=== PATIENT | female | born 1950 | race Caucasian/White ===

== ENCOUNTER 2020-04-07 13:56 | Inpatient (IN) | payer MEDICARE, OTHER ==
[2020-04-07] MEDS ORDERED: Ondansetron PF 4 MG/2 ML Vial ONE (14:48)
[2020-04-07] MEDS ORDERED: Morphine 4 MG/ML VIAL ONE (14:48)
[2020-04-07 14:57] LABS: #Lymphocytes 1.9 thou/uL (1.20-3.40); #Monocytes 0.9 thou/uL (0.11-0.59); #Neutrophils 10.9 thou/uL (1.40-6.50); %Basophils 0.3 % (0.0-1.0); %Eosinophils 0.1 % (0.0-10.0); %Lymphocytes 13.9 % (21.0-51.0); %Monocytes 6.6 % (0.0-10.0); Hemoglobin 14.5 g/dL (12.0-16.0); Mean Corpuscular HGB CONC 32.4 g/dL (32.0-36.0); Mean Corpuscular Hemoglobin 30.6 pg (27.0-31.0); Mean Corpuscular Volume 94.4 fL (78.0-98.0); Mean Platelet Volume 9.1 fL (7.4-10.4); Platelet Count 313 thou/uL (130-400); RBC Distribution Width 12.4 % (11.5-14.5); Red Blood Cell (RBC) Count 4.74 mill/uL (4.20-5.40); White Blood Cell (WBC) Count 13.7 thou/uL (4.8-10.8)
[2020-04-07 15:20] LABS: ALT (SGPT) 22 U/L (8-55); AST (SGOT) 15 U/L (5-34); Alkaline Phosphatase 120 U/L (40-110); Anion Gap 17 mmol/L (10-20); BUN (Urea Nitrogen) 24 mg/dL (9.8-20.1); Bilirubin, Total 0.6 mg/dL (0.2-1.2); Calc. Creatinine Clearance 0 mL/min (70-130); Calcium 9.6 mg/dL (7.8-10.44); Carbon Dioxide 27 mmol/L (23-31); Chloride 98 mmol/L (98-107); Estimated GFR-MDRD 63; Globulin 3.5 g/dL (2.4-3.5); Glucose 127 mg/dL (80-115); Lipase 15 U/L (8-78); Potassium 4.6 mmol/L (3.5-5.1); Protein, Total 7.5 g/dL (6.0-8.3); Sodium 137 mmol/L (136-145)
[2020-04-07] MEDS ORDERED: metroNIDAZOLE 500 MG/100 ML BAG ONE (15:38)
[2020-04-07] MEDS ORDERED: Ondansetron ODT 4 MG TAB PO PRN (17:49)
[2020-04-07] MEDS ORDERED: Senokot S 8.6-50 MG TAB PO PRN (17:49)
[2020-04-07] MEDS ORDERED: Ondansetron PF 4 MG/2 ML Vial IVP PRN (17:49)
[2020-04-07] MEDS ORDERED: Acetaminophen 325 MG TAB PO PRN (17:49)
[2020-04-07] MEDS ORDERED: Bisacodyl 5 MG TAB PO PRN (17:49)
[2020-04-07] MEDS ORDERED: Bisacodyl 10 MG SUPP PR PRN (17:49)
[2020-04-07] MEDS ORDERED: Sodium Chloride 0.9% 1,000 ML IV SCH (18:00)
[2020-04-07] MEDS ORDERED: Piperacillin/Tazobactam 4.5 GM in Sodium Chloride 0.9% 100 ML IVPB SCH (18:00)
[2020-04-07] MEDS ORDERED: HumaLOG 300 UNITS/3 ML VIAL SC PRN ×2 (18:04)
[2020-04-07] MEDS ORDERED: Dextrose 50% Abboject 50 ML SYRINGE SLOW IVP PRN (18:04)
[2020-04-07] MEDS ORDERED: Dextrose 5% in Water 1,000 ML IV PRN (18:04)
[2020-04-07] MEDS ORDERED: GoLYTELY 4,000 ml Bottle PO SCH (18:15)
[2020-04-07 18:21] LABS: Lactic Acid 1.9 mmol/L (0.5-2.2)
[2020-04-07 18:31] VITALS: BMI 24.1
--- NOTE | 2020-04-07 19:19 | HP ---
PRIMARY CARE PHYSICIAN: Out of town. CHIEF COMPLAINT: Abdominal pain. HISTORY OF PRESENT ILLNESS: The patient is a poor historian. Therefore, the bulk of the H and P was taken from previous medical records, ER notes, and nursing documentation. The patient is a 70-year-old female with a past medical history significant for CAD; diabetes type 2, non-insulin dependent; hypertension; and recent stroke, who presented to the hospital from [facility] in [place], [place] via EMS. It appears that the patient had abdominal pain with some associated nausea and vomiting for the past couple of days. The patient reports that the pain was located generally throughout the abdomen. Denies any hematemesis or diarrhea. She does not know when her last bowel movement occurred. She denies any associated fever or chills. She denies any urinary symptoms such as dysuria, frequency, or urgency. She denies any vaginal discharge. Dr. Johns, who is her primary care provider at rehab, ordered a CT of the abdomen and pelvis with contrast today. The CT showed large volume stool and dilated rectum with mural thickening. The patient was subsequently transferred to this hospital for further treatment and evaluation. In the ER, the patient presented with stable vital signs, normal blood pressure, normal pulse, normal respirations, normal SpO2 sat, afebrile. Her WBCs were 13.7. Lactic acid 2.6. Her CMP and CBC were otherwise unremarkable. The patient was digitally disimpacted by an ER physician and started on Flagyl and Levaquin. She was given 1.5 L of normal saline along with morphine and Zofran IV push and admitted to the floor for further care. PAST MEDICAL HISTORY: 1. CVA (03/25/2020) unknown deficits. 2. CAD, on aspirin and Plavix. 3. Diabetes type 2. 4. Hyperlipidemia. 5. Hypertension. PAST SURGICAL HISTORY: Cholecystectomy. SOCIAL HISTORY: The patient currently resides at an inpatient [facility] in [place], [place]. She is a retired from [employer]. She reports that she ambulates with a roller walker. However, she appears generally deconditioned on exam. She denies any history of smoking, illicit drug use, or alcohol intake. FAMILY HISTORY: Contributory for CVA, the patient is a poor historian. ALLERGIES: 1. GUAIFENESIN. 2. BENADRYL. HOME MEDICATIONS: 1. Aspirin 81 mg p.o. daily. 2. Plavix 75 mg p.o. daily. 3. Atorvastatin 10 mg p.o. daily. 4. Lisinopril 20 mg p.o. daily. 5. Metoprolol succinate 50 mg p.o. daily. 6. Metformin 500 mg p.o. b.i.d. 7. Oxybutynin 5 mg p.o. b.i.d. 8. Pioglitazone 30 mg p.o. daily. REVIEW OF SYSTEMS: All review of systems are negative unless otherwise stated in HPI. PHYSICAL EXAMINATION: VITAL SIGNS: Temperature 99 Fahrenheit, blood pressure 113/54, pulse 56, respirations 20, SpO2 sat 100% on room air, pain 0/10. CONSTITUTIONAL: The patient is alert and oriented to person and place. She has slowed speech, appears in no acute distress. HEAD: Atraumatic and normocephalic. EYES: PERRL. Sclerae nonicteric. Extraocular muscles intact. ENT: Oropharynx is clear. Uvula midline. Tacky mucous membranes. No lesions. NECK: Full range of motion. No cervical spinous tenderness. No cervical adenopathy. Trachea midline. CARDIOVASCULAR: S1 and S2 appreciated. No murmurs, rubs, or gallops. RESPIRATORY/CHEST: Respirations even and unlabored. Clear to auscultation. No rhonchi, wheezes, or rales. ABDOMEN: Soft, nontender, nondistended. No guarding, rigidity, or rebound. Negative Rovsing sign. Negative Gonzalez sign. No abdominal bruit auscultated. BACK: No central spinous tenderness. No CVA tenderness. EXTREMITIES: Upper extremities; full range of motion. Strength 4/5 on the power scale. Sensation intact. Palpable radial pulses. Lower extremities; decreased range of motion. General weak 3/5 on the power scale. Sensation intact. No edema. Palpable radial pulses. NEUROLOGIC: The patient is A and O x2. Follows commands. Moves all extremities. No focal motor deficits. She does have slowed speech. No dysarthria. PSYCHIATRIC: Denies suicidal or homicidal ideation with a flat affect. A and O x2. LABS AND DIAGNOSTICS: CT of the abdomen showed a large volume stool and a dilated rectum with mural thickening consistent for stercoral colitis and fecal impaction. The dilated rectum is 8 cm in diameter at its largest area. Lactic acid was 2.6. WBCs 13.7, hemoglobin 14.5, hematocrit 44.8, platelet count 313. Sodium 137, potassium 4.6, chloride 98, carbon dioxide 27, anion gap 17, BUN 24, creatinine 0.89, glucose 127. Bilirubin 0.6, AST 15, ALT 22, alkaline phosphatase 120, lipase 15, albumin 4.0. IMPRESSION AND PLAN: 1. Fecal impaction. The patient will be admitted to the medical floor inpatient status. Expected length of stay less than [address] abdomen and pelvis is positive for large volume stool and dilated rectum with mural thickening, no perforation or concern for abscess. The patient presented with stable vital signs. Lactic acid 2.6. WBCs of 13.7. The patient was given 30 mL/kg of IV fluid resuscitation and started on Flagyl and Levaquin in the ER. We will start the patient on Zosyn. Continue IV fluid resuscitation. Blood cultures and urine cultures and coronavirus swab are pending. We will order GoLYTELY and enemas and start the patient on a clear liquid diet. We will consult GI. 2. Stercoral colitis, likely secondary to problem #1. 3. Dehydration. The patient presented with a BUN of 24 and a creatinine of 0.89. We will continue IV fluid resuscitation and clear liquid diet and recheck levels in the a.m. 4. Hematuria. The patient has a Akhtar with what appears to be red urine. UA and urine culture are pending. Hemoglobin and hematocrit are stable. We will hold Plavix for now and continue low-dose aspirin considering recent CVA. We will await UA results and check hemoglobin this evening. 5. Hypertension. The patient presented with a stable blood pressure and pulse. The patient takes metoprolol succinate 50 mg daily and lisinopril 20 mg daily. We will start her metoprolol at half the dose 25 mg twice a day and we will restart her lisinopril 20 mg and continue to monitor blood pressure. 6. Diabetes, type 2. The patient reports taking metformin and pioglitazone at home. We will hold oral antihyperglycemics for now. We will start the patient on moderate sliding scale with Accu-Cheks a.c. and at bedtime. 7. Coronary artery disease. The patient was on aspirin and Plavix. We will hold the patient's Plavix for now secondary to hematuria and we will continue aspirin given the patient's recent CVA. SCDs for deep venous thrombosis prophylaxis. No pharmacological deep venous thrombosis prophylaxis. Protonix for gastrointestinal prophylaxis. The patient is a full code. Discussed the case with Dr. Johnson. Job ID: [id number] MTDD
[2020-04-07] MEDS: Bisacodyl 10 MG SUPP PR SCH (19:53)
[2020-04-07] MEDS: Piperacillin/Tazobactam 4.5 GM in Sodium Chloride 0.9% 100 ML IVPB SCH (19:53)
[2020-04-07] MEDS: Lactated Ringer's 1,000 ML IV SCH (19:54)
[2020-04-07] MEDS: Metoprolol Tartrate 25 MG TAB PO SCH (20:47)
[2020-04-07 23:26] LABS: Hemoglobin 12.9 g/dL (12.0-16.0)
[2020-04-08] MEDS: Bisacodyl 10 MG SUPP PR SCH ×3 (02:15→18:02)
[2020-04-08] MEDS: Piperacillin/Tazobactam 4.5 GM in Sodium Chloride 0.9% 100 ML IVPB SCH ×3 (04:00→20:22)
[2020-04-08 05:44] LABS: #Lymphocytes 1.3 thou/uL (1.20-3.40); #Monocytes 1.1 thou/uL (0.11-0.59); #Neutrophils 14.2 thou/uL (1.40-6.50); %Basophils 0.1 % (0.0-1.0); %Eosinophils 0.2 % (0.0-10.0); %Lymphocytes 7.9 % (21.0-51.0); %Monocytes 6.4 % (0.0-10.0); %Neutrophils 85.5 % (42.0-75.0); Hemoglobin 12.4 g/dL (12.0-16.0); Mean Corpuscular HGB CONC 32.5 g/dL (32.0-36.0); Mean Corpuscular Hemoglobin 31.1 pg (27.0-31.0); Mean Corpuscular Volume 95.7 fL (78.0-98.0); Platelet Count 246 thou/uL (130-400); RBC Distribution Width 12.4 % (11.5-14.5); Red Blood Cell (RBC) Count 3.98 mill/uL (4.20-5.40); White Blood Cell (WBC) Count 16.7 thou/uL (4.8-10.8)
[2020-04-08 06:09] LABS: ALT (SGPT) 15 U/L (8-55); AST (SGOT) 12 U/L (5-34); Albumin 3.2 g/dL (3.4-4.8); Alkaline Phosphatase 97 U/L (40-110); Anion Gap 14 mmol/L (10-20); BUN (Urea Nitrogen) 17 mg/dL (9.8-20.1); Bilirubin, Total 0.6 mg/dL (0.2-1.2); Calc. Creatinine Clearance 79 mL/min (70-130); Calcium 8.5 mg/dL (7.8-10.44); Carbon Dioxide 23 mmol/L (23-31); Chloride 103 mmol/L (98-107); Estimated GFR-MDRD Greater than 90; Globulin 2.8 g/dL (2.4-3.5); Glucose 130 mg/dL (80-115); Potassium 4.2 mmol/L (3.5-5.1); Sodium 136 mmol/L (136-145)
[2020-04-08] MEDS: Lisinopril 20 MG TAB PO SCH (08:56)
[2020-04-08] MEDS: Aspirin Chewable 81 MG TAB PO SCH (08:56)
[2020-04-08] MEDS: Lactated Ringer's 1,000 ML IV SCH ×2 (08:56→23:00)
[2020-04-08] MEDS: Atorvastatin Calcium 10 MG TAB PO SCH (08:57)
[2020-04-08] MEDS: Pantoprazole 40 MG VIAL IVP SCH (09:11)
[2020-04-08] MEDS: Oxybutynin 5 MG TAB PO SCH (10:07)
[2020-04-08] MEDS: Metoprolol Tartrate 25 MG TAB PO SCH ×2 (10:07→20:22)
--- NOTE | 2020-04-08 10:12 | PDOC.HOSPP ---
- Subjective Encounter Date: 04/08/20 Subjective: Bowel movements reported. - Objective Vital Signs & Weight: Vital Signs (12 hours) Temp Pulse Resp BP BP Pulse Ox 04/08/20 08:56 147/64 H 04/08/20 08:33 98.5 F 65 20 147/64 H 97 04/08/20 08:00 97 04/08/20 04:18 97.8 F 72 16 154/68 H 100 04/07/20 23:51 98.1 F 60 16 137/52 L 97 Weight Weight 132 lb Result Diagrams: 04/08/20 05:30 04/08/20 05:30 Hospitalist ROS - Medication Medications: Active Medications Generic Name Dose Route Start Last Admin Trade Name Freq PRN Reason Stop Dose Admin Acetaminophen 650 mg 04/07/20 17:49 04/08/20 05:42 Tylenol PO 650 mg Q4H PRN Administration Headache/Fever/Mild Pain (1-3) Aspirin 81 mg 04/08/20 09:00 04/08/20 08:56 Aspirin Chewable PO 81 mg DAILY TRENT Administration Atorvastatin Calcium 10 mg 04/08/20 09:00 04/08/20 08:57 Lipitor PO 10 mg DAILY TRENT Administration Bisacodyl 10 mg 04/07/20 18:15 04/08/20 02:15 Dulcolax [place] Not Given Q8H TRENT Lactated Ringer's 1,000 mls @ 70 mls/hr 04/07/20 18:15 04/08/20 08:56 Lactated Ringer's IV 1,000 mls .[id number] TRENT Administration Piperacillin Sod/Tazobactam 100 mls @ 200 mls/hr 04/07/20 20:00 04/08/20 04: 00 Sod 4.5 gm/ Sodium Chloride IVPB 100 mls 0400,1200,2000 TRENT Administration Lisinopril 20 mg 04/08/20 09:00 04/08/20 08:56 Zestril PO 20 mg DAILY TRENT Administration Metoprolol Tartrate 25 mg 04/07/20 21:00 04/07/20 20:47 Lopressor PO Not Given BID TRENT Pantoprazole Sodium 40 mg 04/08/20 09:00 04/08/20 09:11 Protonix IVP 40 mg DAILY TRENT Administration - Exam General Appearance: awake alert Neck: supple, no JVD Respiratory: normal chest expansion, no tachypnea Gastrointestinal: soft Neurological: cranial nerve grossly intact, no new deficit Hosp A/P (1) Fecal impaction Code(s): K56.41 - FECAL IMPACTION Status: Acute (2) Colitis Code(s): K52.9 - NONINFECTIVE GASTROENTERITIS AND COLITIS, UNSPECIFIED Status : Acute (3) Dehydration Code(s): E86.0 - DEHYDRATION Status: Acute (4) Coronary artery disease Code(s): I25.10 - ATHSCL HEART DISEASE OF [place] CORONARY ARTERY W/O ANG PCTRS Status: Acute (5) Suspected UTI Code(s): R39.89 - OTHER SYMPTOMS AND SIGNS INVOLVING THE GENITOURINARY SYSTEM Status: Acute - Plan Continue IV hydration. Continue GoLYTELY as needed to achieve 2 or more bowel movements a day. PT and OT evaluation. Check UA.
[2020-04-08 10:38] LABS: Bilirubin Negative (Negative); Blood, Urine 2+ (Negative); Clarity Clear (Clear); Glucose, Urine (Dipstick) Normal (Negative); Ketone, Urine 60 mg/dL (Negative); Leukocyte 250 Leu/uL (Negative); Nitrite Negative (Negative); Protein, Urine (Dipstick) 10 mg/dL (Neg-Trace); RBC/HPF 21-50 HPF (0-3); Specific Gravity, Urine 1.033 (1.002-1.036); Squamous Epithelial None Seen HPF (0-3); Urobilinogen Normal mg/dL (Less than 2); pH, Urine 5.5 (5.0-9.0)
[2020-04-08 10:42] LABS: Bacteria/HPF 1+ HPF (None Seen)
[2020-04-08 12:40] LABS: SARS-CoV-2 MS2 Positive; SARS-CoV-2 N Gene Negative; SARS-CoV-2 S Gene Negative; SARS-CoV-2 by NAA Not Detected (NotDetected); SARS-CoV-2 orf1ab Negative
[2020-04-09] MEDS: Bisacodyl 10 MG SUPP PR SCH ×2 (03:15→08:54)
[2020-04-09] MEDS: Piperacillin/Tazobactam 4.5 GM in Sodium Chloride 0.9% 100 ML IVPB SCH ×2 (05:19→13:00)
[2020-04-09] MEDS: Aspirin Chewable 81 MG TAB PO SCH (08:51)
[2020-04-09] MEDS: Lisinopril 20 MG TAB PO SCH (08:52)
[2020-04-09] MEDS: Metoprolol Tartrate 25 MG TAB PO SCH (08:53)
[2020-04-09] MEDS: Oxybutynin 5 MG TAB PO SCH (08:53)
[2020-04-09] MEDS: Atorvastatin Calcium 10 MG TAB PO SCH (08:53)
[2020-04-09] MEDS: Pantoprazole 40 MG VIAL IVP SCH (08:54)
[2020-04-09 09:41] LABS: #Eosinphils 0.1 thou/uL (0.0-0.7); #Lymphocytes 2.1 thou/uL (1.20-3.40); #Monocytes 0.9 thou/uL (0.11-0.59); #Neutrophils 9.4 thou/uL (1.40-6.50); %Basophils 0.2 % (0.0-1.0); %Eosinophils 1.1 % (0.0-10.0); %Monocytes 7.1 % (0.0-10.0); %Neutrophils 74.6 % (42.0-75.0); Hemoglobin 11.3 g/dL (12.0-16.0); Mean Corpuscular HGB CONC 33.3 g/dL (32.0-36.0); Mean Corpuscular Hemoglobin 31.6 pg (27.0-31.0); Mean Corpuscular Volume 94.8 fL (78.0-98.0); Mean Platelet Volume 9.4 fL (7.4-10.4); Platelet Count 259 thou/uL (130-400); RBC Distribution Width 12.3 % (11.5-14.5); Red Blood Cell (RBC) Count 3.59 mill/uL (4.20-5.40); White Blood Cell (WBC) Count 12.5 thou/uL (4.8-10.8)
[2020-04-09 09:50] LABS: Anion Gap 11 mmol/L (10-20); BUN (Urea Nitrogen) 12 mg/dL (9.8-20.1); Calc. Creatinine Clearance 87 mL/min (70-130); Calcium 8.2 mg/dL (7.8-10.44); Carbon Dioxide 28 mmol/L (23-31); Chloride 100 mmol/L (98-107); Estimated GFR-MDRD Greater than 90; Glucose 92 mg/dL (80-115); Potassium 3.7 mmol/L (3.5-5.1); Sodium 135 mmol/L (136-145)
--- NOTE | 2020-04-09 12:50 | PDOC.HOSPP ---
- Subjective Encounter Date: 04/09/20 Encounter Time: 12:48 Subjective: Ms. Taylor was seen today in follow-up of fecal impaction. She does not have any complaints this morning. - Objective Vital Signs & Weight: Vital Signs (12 hours) Temp Pulse Resp BP BP BP Pulse Ox 04/09/20 11:55 98.5 F 53 L 15 180/64 H 96 04/09/20 08:52 183/72 H 04/09/20 07:31 98.3 F 51 L 16 168/72 H 93 L 04/09/20 04:00 98.3 F 61 18 157/69 H 95 Weight Weight 132 lb I&O: 04/08/20 04/09/20 04/10/20 06:59 06:59 06:59 Output Total 150 Balance -150 Result Diagrams: 04/09/20 09:04 04/09/20 09:04 Additional Labs: Accuchecks 04/09/20 04/09/20 04/08/20 12:03 05:22 22:08 POC Glucose 95 93 93 04/08/20 04/08/20 04/08/20 17:04 11:23 04:22 POC Glucose 133 H 146 H 138 H Hospitalist ROS - Medication Medications: Active Medications Generic Name Dose Route Start Last Admin Trade Name Freq PRN Reason Stop Dose Admin Acetaminophen 650 mg 04/07/20 17:49 04/08/20 05:42 Tylenol PO 650 mg Q4H PRN Administration Headache/Fever/Mild Pain (1-3) Aspirin 81 mg 04/08/20 09:00 04/09/20 08:51 Aspirin Chewable PO 81 mg DAILY TRENT Administration Atorvastatin Calcium 10 mg 04/08/20 09:00 04/09/20 08:53 Lipitor PO 10 mg DAILY TRENT Administration Bisacodyl 10 mg 04/07/20 18:15 04/09/20 08:54 Dulcolax [place] 10 mg Q8H TRENT Administration Lactated Ringer's 1,000 mls @ 70 mls/hr 04/07/20 18:15 04/08/20 23:00 Lactated Ringer's IV 1,000 mls .[id number] TRENT Administration Piperacillin Sod/Tazobactam 100 mls @ 200 mls/hr 04/07/20 20:00 04/09/20 05: 19 Sod 4.5 gm/ Sodium Chloride IVPB 100 mls 0400,1200,2000 TRENT Administration Lisinopril 20 mg 04/08/20 09:00 04/09/20 08:52 Zestril PO 20 mg DAILY TRENT Administration Metoprolol Tartrate 25 mg 04/07/20 21:00 04/09/20 08:53 Lopressor PO 25 mg BID TRENT Administration Oxybutynin Chloride 5 mg 04/08/20 09:00 04/09/20 08:53 Ditropan PO 5 mg DAILY TRENT Administration Pantoprazole Sodium 40 mg 04/08/20 09:00 04/09/20 08:54 Protonix IVP 40 mg DAILY TRENT Administration - Exam Eye: PERRL, anicteric sclera Heart: RRR, no murmur, no gallops, no rubs, normal peripheral pulses Respiratory: CTAB, no wheezes, no rales, no ronchi, normal chest expansion, no tachypnea Gastrointestinal: soft, non-tender, non-distended, normal bowel sounds, no palpable masses Extremities: no cyanosis Hosp A/P (1) Fecal impaction Code(s): K56.41 - FECAL IMPACTION Status: Acute (2) Asymptomatic bacteriuria Code(s): R82.71 - BACTERIURIA Status: Acute - Plan * Fecal Impaction- resolved * Asymptomatic Bactiuria- can discontinue antibiotics * Stable for transition back to Rehab
[2020-04-09 15:52] VITALS: BP 170/60; TEMP 98.3
[2020-04-09] MEDS: Lactated Ringer's 1,000 ML IV SCH (17:09)
--- NOTE | 2020-04-10 01:08 | DIS ---
DATE OF ADMISSION: 04/07/2020 DATE OF DISCHARGE: 04/09/2020 DISCHARGE DISPOSITION: Home. DISCHARGE DIAGNOSES: 1. Fecal impaction. 2. Hypertension. 3. Diabetes mellitus type 2. 4. Coronary artery disease. 5. Hyperlipidemia. 6. History of previous cerebrovascular accident. DISCHARGE MEDICATIONS: Include; 1. MiraLAX 17 g as needed. 2. Pioglitazone 30 mg daily. 3. Oxybutynin 5 mg p.o. daily. 4. Metoprolol succinate 50 mg extended release daily. 5. Metformin 500 mg p.o. b.i.d. 6. Lisinopril 20 mg daily. 7. Plavix 75 mg p.o. daily. 8. Clonidine 0.1 mg q.6 as needed. 9. Atorvastatin 10 mg p.o. daily. 10. Aspirin 81 mg at bedtime. 11. Acetaminophen 500 mg q.4 hours as needed. CODE STATUS: Full code. ALLERGIES: TO CEPHALEXIN, CODEINE, GUAIFENESIN, PHENYLEPHRINE, AND VENLAFAXINE. HOSPITAL COURSE: Ms. Taylor is a pleasant 70-year-old female, who was admitted to the hospital after having fecal impaction. She had been getting rehabilitation for a recent stroke at the [facility] rehab in [place], [place]. She was brought into the hospital. She was given GoLYTELY for disimpaction and to relieve the constipation. She was also found to have some asymptomatic bacteriuria. After the fecal impaction was relieved, she was able to be discharged back to the inpatient rehab in stable condition. Job ID: [id number]
--- NOTE | 2020-04-11 05:38 | PQF ---
CLINICAL DOCUMENTATION CLARIFICATION FORM: Dear : Babak Bowles Date / Time: 04/11/2020 05:37 Please exercise your independent, professional judgment in responding to the clarification form. Clinical indicators are provided on the bottom of this form for your review Please check appropriate box(es): [ ] Sepsis [ ] Severe sepsis [ ] Localized infection without sepsis [ ] SIRS due to non-infectious process (please specify etiology) [ ] with organ dysfunction [ ] without organ dysfunction [X ] Other diagnosis ___fecal impaction [ ] Unable to determine Physician Signature: Date/Time: For continuity of documentation, please document condition throughout progress notes and discharge summary. Thank You. To be completed by CDI/Coding staff for physician review: Present Clinical Indicators - Signs / Symptoms / Labs Results and Location in Medical Record [x] severe sepsis ED Notes 04/07 [x] Met criteria for severe sepsis with her lactic acidosis ED Notes 04/07 [x] found that she had colitis ED Notes 04/07 [x] Stercoral colitis due to fecal impaction HP 04/07 [x] Temp=98.4 Pulse=65 Respi=20 BP=97/63 Vital Signs 04/07 [x] WBC: 04/07=13.7 04/08=16.7 04/09=12.5 Labs 04/07 [x] Lactic Acid: 04/07=2.6 Labs 04/07 [x] Blood culture: no growth Collected 04/07 Present Risk Factors Results and Location in Medical Record [x] DM type 2 ED Notes 04/07 [x] 70 years old female HP 04/07 [x] Fecal impaction HP 04/07 [x] Stercoral colitis HP 04/07 Present Treatments Results and Location in Medical Record [x] IVF ED Notes 04/07 [x] Levaquin 750mg IV OCT 04 [x] Flagyl 500mg IV OCT 04 [x] Zosyn 4.5gm IV OCT 04 [x] Blood culture Collected 04/07 CDS/[facility] [employer] Signature: Catarino Harrison Phone #: ext [phone] Date/Time: 04/11/20 05:37 This is a permanent part of the Medical Record [facility]
== END 2020-04-09 16:10 | DRG 389 ==
LOC: ERS 13:56 → T4-B 16:31
PROVIDERS: ADMIT Internal Medicine; ATTEND Internal Medicine
DX: K56.41 Fecal impaction (principal); E87.2 Acidosis; I25.10 Atherosclerotic heart disease of native coronary artery without angina pectoris; E11.9 Type 2 diabetes mellitus without complications; I10 Essential (primary) hypertension; K52.89 Other specified noninfective gastroenteritis and colitis; E78.5 Hyperlipidemia, unspecified; E86.0 Dehydration; R31.9 Hematuria, unspecified; R82.71 Bacteriuria; Z86.73 Personal history of transient ischemic attack (TIA), and cerebral infarction without residual deficits; Z88.1 Allergy status to other antibiotic agents; Z88.8 Allergy status to other drugs, medicaments and biological substances; Z79.01 Long term (current) use of anticoagulants; Z79.84 Long term (current) use of oral hypoglycemic drugs; Z79.82 Long term (current) use of aspirin; Z79.899 Other long term (current) drug therapy; Z90.49 Acquired absence of other specified parts of digestive tract
CPT/HCPCS: 36415; 36416; 80048; 80053; 81015; 83605; 83690; 85025; 87040; 87086; 87635; 96361; 96365; 96367; 96375; C9113; J1956; J2270; J2405; J2543; J3490; U0003

== ENCOUNTER 2020-04-17 00:53 | Emergency (ER) | payer SELFPAY ==
[2020-04-17 02:09] LABS: #Basophils 0.3 thou/uL (0.0-0.2); #Eosinphils 0.4 thou/uL (0.0-0.7); #Lymphocytes 2.5 thou/uL (1.20-3.40); #Monocytes 0.8 thou/uL (0.11-0.59); #Neutrophils 7.9 thou/uL (1.40-6.50); %Basophils 2.6 % (0.0-1.0); %Eosinophils 3.5 % (0.0-10.0); %Lymphocytes 21.3 % (21.0-51.0); %Monocytes 6.5 % (0.0-10.0); Hemoglobin 12.2 g/dL (12.0-16.0); Mean Corpuscular HGB CONC 32.2 g/dL (32.0-36.0); Mean Corpuscular Hemoglobin 30.4 pg (27.0-31.0); Mean Corpuscular Volume 94.5 fL (78.0-98.0); Mean Platelet Volume 8.3 fL (7.4-10.4); Platelet Count 315 thou/uL (130-400); RBC Distribution Width 12.2 % (11.5-14.5); Red Blood Cell (RBC) Count 3.99 mill/uL (4.20-5.40); White Blood Cell (WBC) Count 11.9 thou/uL (4.8-10.8)
[2020-04-17 02:29] LABS: Bacteria/HPF None Seen HPF (None Seen); Bilirubin Negative (Negative); Blood, Urine 1+ (Negative); Clarity Clear (Clear); Glucose, Urine (Dipstick) Normal (Negative); Ketone, Urine 80 mg/dL (Negative); Leukocyte 500 Leu/uL (Negative); Nitrite Negative (Negative); Protein, Urine (Dipstick) Negative (Neg-Trace); RBC/HPF 21-50 HPF (0-3); Specific Gravity, Urine 1.013 (1.002-1.036); Squamous Epithelial None Seen HPF (0-3); Urobilinogen Normal mg/dL (Less than 2); WBC/HPF Greater than 50 HPF (0-3); Yeast-Budding 2+ HPF (None Seen); pH, Urine 5.5 (5.0-9.0)
[2020-04-17 02:32] LABS: ALT (SGPT) 19 U/L (8-55); AST (SGOT) 18 U/L (5-34); Albumin 3.1 g/dL (3.4-4.8); Alkaline Phosphatase 85 U/L (40-110); Anion Gap 15 mmol/L (10-20); BUN (Urea Nitrogen) 9 mg/dL (9.8-20.1); Bilirubin, Total 0.5 mg/dL (0.2-1.2); Calc. Creatinine Clearance 0 mL/min (70-130); Calcium 7.9 mg/dL (7.8-10.44); Carbon Dioxide 20 mmol/L (23-31); Chloride 103 mmol/L (98-107); Estimated GFR-MDRD Greater than 90; Globulin 2.8 g/dL (2.4-3.5); Glucose 81 mg/dL (80-115); Potassium 3.8 mmol/L (3.5-5.1); Protein, Total 5.9 g/dL (6.0-8.3); Sodium 134 mmol/L (136-145)
--- NOTE | 2020-04-17 08:03 | CT ---
PRELIMINARY REPORT/[facility]/EMERGENCY AFTER HOURS PROCEDURE: EXAM: CT abdomen/pelvis without contrast CLINICAL HISTORY: PT C/O ABDMINAL PAIN, NAUSEA, AND VOMITING. PT IS POOR HISTORIAN COMPARISONS: CTSR - CT ABDOMEN PELVIS WO CON - 04/07/2020 12:54 PM CDT TECHNIQUE: CT imaging of the abdomen and pelvis without contrast. Multiplanar reconstructions perfor med. FINDINGS: LOWER CHEST: Dependent atelectasis. Mild cardiomegaly. Calcification of the mitral annulus. Coronary arterial calcification. LIVER: Normal. GALLBLADDER/BILIARY: Post cholecystectomy. No biliary ductal dilatation. SPLEEN: Normal. PANCREAS: Fatty atrophic changes. ADRENAL GLANDS: Normal. KIDNEYS/URETERS/URINARY BLADDER: Multiple renal hilar vascular calcification. Unchanged bilateral per inephric stranding. Ureters are normal. Urinary bladder is decompressed with a Akhtar catheter in place. REPRODUCTIVE: Normal. STOMACH/BOWEL: Distal esophagus and stomach are unremarkable. Small bowel is mildly prominent in kit maria teresa measuring up to 2.3 cm in diameter, and is fluid-filled.. Moderate colonic stool burden. Previously described large rectal stool burden is no longer present. APPENDIX: Normal. PERITONEUM/MESENTERY: No intraperitoneal free air. No intraperitoneal free fluid. VASCULAR: Extensive calcification of the abdominal aorta and major abdominal and pelvic branches. LYMPH NODES: No lymphadenopathy. MUSCULOSKELETAL: Generalized osseous demineralization. Unchanged mild anterior wedging of the L1 vert ebral body. Median sternotomy changes. Postoperative changes from right femoral medullary judson and right femoral neck dynamic hip screw placement. Degenerative changes of the hips. There is again suba cute to chronic appearing posterior left 11th rib fracture. ABDOMINAL WALL: Peripheral soft tissues are unremarkable. IMPRESSION: 1. Fluid-filled mildly prominent small bowel. Appearance is nonspecific, but could reflect infectious or inflammatory enteritis. 2. Moderate colonic stool burden. This could support the diagnosis of constipation the appropriate cl inical context. 3. Previously described large rectal stool burden is no longer present. ELECTRONICALLY SIGNED BY: Kosta Hennessy MD Apr 17, 2020 2:02:21 AM CDT FINAL REPORT EMERGENT AFTER HOURS NONCONTRAST CT ABDOMEN AND PELVIS: HISTORY: Abdominal pain with nausea and vomiting. COMPARISON: 04/07/2020 IMPRESSION: 1. Fluid-filled and mildly prominent loops of small bowel. Overall nonspecific finding. Enteritis cou ld not be entirely excluded. Small duodenal diverticulum is present. 2. Moderate amount retained fecal material seen throughout the colon. Previously noted large amount o f retained fecal material in the rectum is no longer seen. 3. Presacral inflammatory stranding and fluid is present, but this is also improved from prior exam. 4. Prominent vascular calcifications. 5. Cardiomegaly. 6. Tiny bilateral pleural effusions. 7. Diffuse osteopenia with stable wedge-shaped compression fracture L1 vertebral body. Remote left po sterior 11th rib fracture is present. 8. Findings are in agreement with pulmonary report by [facility]. Transcribed Date/Time: 04/17/2020 8:25 AM
== END 2020-04-17 03:12 ==
LOC: ERS 00:53
DX: R11.2 Nausea with vomiting, unspecified (principal); R10.9 Unspecified abdominal pain; I25.10 Atherosclerotic heart disease of native coronary artery without angina pectoris; Z86.73 Personal history of transient ischemic attack (TIA), and cerebral infarction without residual deficits; E11.9 Type 2 diabetes mellitus without complications; I10 Essential (primary) hypertension; Z79.82 Long term (current) use of aspirin; Z79.84 Long term (current) use of oral hypoglycemic drugs; Z79.899 Other long term (current) drug therapy
CPT/HCPCS: 36415; 74176; 81003; 81015; 85025; 87086